=== PATIENT | female | born 1980 | race Caucasian/White ===

== ENCOUNTER 2017-07-10 19:06 | Emergency (ER) | payer OTHER ==
[~2017-07-10] VITALS: Ht 167.6 cm; Wt 60.0 kg
[~2017-07-10 19:06] MED LIST: Z.0.NO CURRENT MEDS
[2017-07-10 19:17] VITALS: BP 136/92; PULSE 74; RESP 20; TEMP 98.5; O2SAT 100
[2017-07-10] MEDS ORDERED: SILVER SULFADIAZINE 1% CR 50 GM JAR TOPICAL ONE (19:45)
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
[2017-07-10] MEDS ORDERED: SILV1CRE20 TOPICAL (19:53)
[2017-07-10] MEDS ORDERED: IBUP-232 PO (19:56)
[2017-07-10] MEDS ORDERED: IBUPROFEN 600 MG TAB PO ONE (20:00)
== END 2017-07-10 20:09 | disposition home or self-care (01) ==
LOC: NEPA 19:06
DX: T24.212A Burn of second degree of left thigh, initial encounter (principal); X12.XXXA Contact with other hot fluids, initial encounter
CPT/HCPCS: 16020